=== PATIENT | male | born 1970 | race Two or more races ===

== ENCOUNTER 2018-01-25 14:08 | Emergency (ER) | payer OTHER ==
[~2018-01-25] VITALS: Ht 167.6 cm; Wt 85.3 kg
[2018-01-25 14:14] VITALS: BP 125/88
[2018-01-25] MEDS ORDERED: methylPREDNISolone SOD SUCC 125 MG/2 ML VL IM ONE (15:00)
[2018-01-25] MEDS ORDERED: ALBUTEROL SULF 2.5 MG/0.5ML(0.5%) NEB SOLN NEB ONE (15:00)
[2018-01-25] MEDS ORDERED: IPRATROPIUM BROM 0.5 MG/2.5ML INH SOL NEB ONE (15:00)
== END 2018-01-25 15:57 | disposition home or self-care (01) ==
LOC: ER 14:08
DX: J40 Bronchitis, not specified as acute or chronic (principal); J98.01 Acute bronchospasm; J70.5 Respiratory conditions due to smoke inhalation
CPT/HCPCS: 71046; 94640; 96372; 99284; J2930; J7611; J7644

== ENCOUNTER 2018-07-01 08:01 | Inpatient (IN) | payer BC, OTHER ==
[2018-07-01] VITALS (7 sets, daily range): BP systolic 128–139; BP diastolic 68–78
[~2018-07-01] VITALS: Ht 167.6 cm; Wt 86.9 kg
[2018-07-01 08:26] LABS: Basophils # (auto) 0 uL; Basophils % (auto) 0.4 % (0.0-2.0); Eosinophils # (auto) 0 uL; Eosinophils % (auto) 0.1 % (0.0-7.0); Hematocrit 44.3 % (41.0-53.0); Lymphocytes # (auto) 1.2 uL; Lymphocytes % (auto) 14.6 % (10.0-50.0); Mean Corpuscular Hemoglobin 29.1 pg (28.0-32.0); Mean Corpuscular Hgb Conc. 33.9 g/dL (32.0-36.0); Mean Corpuscular Volume 85.9 fL (80.0-100.0); Monocytes # (auto) 0.9 uL; Monocytes % (auto) 11.3 % (0.0-12.0); Neutrophils # (auto) 6.1 uL; Neutrophils % (auto) 73.6 % (37.0-80.0); Nucleated Red Blood Cells % 0.1 %; Platelet Count (auto) 194 10^3/uL (140-450); Red Blood Cells 5.16 10^6/uL (4.5-5.90); White Blood Cell 8.3 10^3/uL (4.4-10.8)
[2018-07-01 08:41] LABS: Albumin 3.8 g/dL (3.4-5.0); Calcium 9.2 mg/dL (8.5-10.1); Potassium 3.9 mmol/L (3.5-5.1)
[2018-07-01 08:45] LABS: Bilirubin, Total 1.1 mg/dL (0.2-1.0); Total Protein 8.4 g/dL (6.4-8.2)
[2018-07-01] MEDS ORDERED: ONDANSETRON HCL 4 MG/2 ML VIAL IV ONE ×2 (10:45→11:15)
[2018-07-01] MEDS ORDERED: KETOROLAC TROMETH 30 MG/ML 1ML VIAL IV ONE (10:45)
[2018-07-01 10:51] LABS: Urine Bacteria NONE SEEN /hpf (None Seen); Urine Blood Negative /uL (Negative); Urine Mucus FEW (None Seen); Urine Specific Gravity 1.021 (1.001-1.035); Urine Sperm PRESENT /hpf (None Seen); Urine WBC 1 /hpf (0 - 3)
[2018-07-01] MEDS ORDERED: HYDROmorphone HCL 2 MG/ML VL IV ONE (11:15)
[2018-07-01] MEDS ORDERED: ENOXAPARIN SOD 100 MG/1 ML SYRINGE SC ONE (12:30)
[2018-07-01] MEDS ORDERED: PIPERACILLIN-TAZOB 3.375GM 100 ML IV ONE (12:30)
[2018-07-01 12:55] LABS: Amylase 68 U/L (25-115); Lipase 295 U/L (73-393)
[2018-07-01] MEDS ORDERED: IOHEXOL 300 MG/ML 100ML BOTTLE IJ ONE (13:04)
[2018-07-01] MEDS: SODIUM CHLORIDE 0.9% 1,000 ML IV SCH (13:20)
[2018-07-01] MEDS ORDERED: NITROGLYCERIN 0.4 MG SL TAB SL PRN (13:45)
[2018-07-01 14:46] LABS: Partial Thromboplastin Time 29.7 sec (23.78-33.04); Prothrombin Time 10.7 sec (9.27-12.13)
[2018-07-01] MEDS ORDERED: IOHEXOL 350 MG/ML 100ML IJ ONE ×3 (15:02→18:29)
[2018-07-01] MEDS ORDERED: LIDOCAINE 2%HCL (LOCAL ANESTH.) INJ 20ML MDV ONE ×2 (15:02→18:29)
[2018-07-01] MEDS ORDERED: fentaNYL CITRATE 100 MCG/2 ML VL ONE ×3 (15:17→18:30)
[2018-07-01] MEDS ORDERED: MIDAZOLAM HCL 1MG/1ML-2 ML VIAL ONE ×3 (15:17→18:31)
[2018-07-01] MEDS ORDERED: STERILE WATER IV ONE (16:30)
[2018-07-01] MEDS ORDERED: ALTEPLASE IV ONE ×2 (16:30→17:00)
[2018-07-01] MEDS ORDERED: CATHFLO IV ONE (17:00)
[2018-07-01] MEDS ORDERED: SODIUM CHLORIDE 0.9% IV ONE (17:00)
[2018-07-01] MEDS: HYDROmorphone HCL 2 MG/ML VL IV PRN ×3 (17:18→22:51)
[2018-07-01] MEDS ORDERED: CATHFLO ACTIVASE (ALTEPLASE) 2 MG VIAL IV ONE ×3 (19:14→19:15)
--- NOTE | 2018-07-01 19:35 | NUR ---
Pt being admitted to ICU ZEESHAN HURST admitted to ICU via gurney on surveillance system monitor. Patient transfered to bed, connected to ICU monitoring and oxygen, and weighed by bedscale. Patient oriented to Lena Thomas RN primary RN, unit, room, bed, and unit policies regarding patient care and visiting hours. All questions and concerns addressed, patient verbalized understanding. NOTE: PT TO UNIT WITH ARTERIAL SHEATH TO R. FLANK WITH TPA INFUSING AT SET RATE OF 1 MG/HR. NO INDICATION OF BLEEDING OBSERVED. LION TO GRAVITY DRAINING DARK VERNON URINE. NS INFUSING AT 50 ML/HR AND TPA AT 100ML/HR. BED IN LOWEST LOCKED POSITION. SIDE RAILS UP X 2. PT A&O X 4 EDUCATED TO ALERT RN IF NOSE BLEED OR ANY UNUSUAL BLEEDING OBSERVED. PT EDUCATED TO REMAIN IN BED AND USE CALL JOHNSON FOR ASSIST IF NEEDED. PT VERBALIZES UNDERSTANDING.
--- NOTE | 2018-07-01 19:40 | NUR ---
VITAL SIGN MONITOR PT TO ICU. MONITOR WITH OUT ECG CORDS. PT IN NO DISTRESS. BP WNL. WILL HOOK TO MONITOR SOON CABLE LOCATED. MAY SEE INTERRUPTION ON VITAL SIGN RECORD.
[2018-07-01] MEDS: ALTEPLASE 2MG CATHFLO 10 MG in SODIUM CHLORIDE 0.9% 1,000 ML IV SCH (19:45)
--- NOTE | 2018-07-01 20:00 | NUR ---
PAIN PT C/O 6/10 PAIN TO R. FLANK SITE OF SHEATH PLACEMENT. PT TENDER TO TOUCH. MEDICATED WITH DILAUDID SIVP PER ORDER (SEE EMAR).
--- NOTE | 2018-07-01 20:15 | NUR ---
TPA PT TPA CONTINUING TO HIGH PRESSURE. NO VISIBLE KINK IN IV TUBING. HOWEVER KINK NOTED NEAR INSERTION SITE OF SHEATH. USING STERILE TECHNIQUE DRESSING REMOVED. AREA CLEANSED WITH CHLORAPREP, CATHETER UN-KINKED AND REDRESSED. TPA NOW INFUSING. PT TOLERATED WELL.
--- NOTE | 2018-07-01 22:50 | NUR ---
PAIN PT C/O PAIN TO R. FLANK AND ABDOMEN 5/10. PT ABDOMEN SOFT TENDER TO TOUCH WITH HYPERACTIVE BOWEL SOUNDS. WILL CONTINUE TO CLOSELY MONITOR FOR DISTENSION. MEDICATED PT WITH DILAUDID SIVP PER ORDER (SEE EMAR).
[2018-07-02] VITALS (53 sets, daily range): BP systolic 125–156; BP diastolic 66–90
[2018-07-02] MEDS: HYDROmorphone HCL 2 MG/ML VL IV PRN ×7 (02:00→23:11)
--- NOTE | 2018-07-02 02:00 | NUR ---
PAIN PT C/O ABDOMINAL PAIN 10/06. MEDICATED WITH DILAUDID SIVP PER ORDER.
--- NOTE | 2018-07-02 03:30 | NUR ---
PAIN PT HAVING ABDOMINAL PAIN 12/06. DILAUDID NOT DUE. WIREWORKER PAGED FOR ORDERS AWAIT C/B.
[2018-07-02 03:45] LABS: Basophils # (auto) 0 uL; Basophils % (auto) 0.5 % (0.0-2.0); Eosinophils # (auto) 0 uL; Eosinophils % (auto) 0.2 % (0.0-7.0); Hematocrit 40.4 % (41.0-53.0); Hemoglobin 13.6 g/dL (13.5-17.5); Lymphocytes % (auto) 14.2 % (10.0-50.0); Mean Corpuscular Hgb Conc. 33.7 g/dL (32.0-36.0); Mean Corpuscular Volume 86.2 fL (80.0-100.0); Monocytes % (auto) 14.3 % (0.0-12.0); Neutrophils % (auto) 70.8 % (37.0-80.0); Nucleated Red Blood Cells % 0.1 %; Platelet Count (auto) 170 10^3/uL (140-450); Red Blood Cells 4.69 10^6/uL (4.5-5.90); Red Cell Distribution Width 14.1 % (11.8-14.3); White Blood Cell 7.1 10^3/uL (4.4-10.8)
[2018-07-02] MEDS: SODIUM CHLORIDE 0.9% 1,000 ML IV SCH ×3 (03:45→20:30)
[2018-07-02] MEDS: MORPHINE SULFATE 4 MG/ML SYR/VIAL IV PRN ×2 (03:54→20:36)
[2018-07-02 04:00] LABS: INR 0.97 (0.9-1.15); Partial Thromboplastin Time 26.6 sec (23.78-33.04); Prothrombin Time 10.4 sec (9.27-12.13)
--- NOTE | 2018-07-02 04:06 | NUR ---
MARITO MELVIN CALL BACK MARITO MELVIN CALLED UNIT. UPDATED REGARDING PT ABDOMINAL PAIN. ORDERS RECEIVED.
[2018-07-02] MEDS ORDERED: HYDROmorphone HCL 2 MG/ML VL IV ONE ×3 (04:15→19:15)
[2018-07-02] MEDS ORDERED: STERILE WATER 20 ML ONE (05:16)
[2018-07-02] MEDS: ALTEPLASE 2MG CATHFLO 10 MG in SODIUM CHLORIDE 0.9% 1,000 ML IV SCH ×2 (05:45→20:00)
[2018-07-02] MEDS ORDERED: PANT40TA2 PO (05:59)
[2018-07-02 06:28] LABS: BUN/Creatinine Ratio 14.3; Calcium 7.7 mg/dL (8.5-10.1)
[2018-07-02 06:31] LABS: Bilirubin, Total 0.8 mg/dL (0.2-1.0); Total Protein 6.9 g/dL (6.4-8.2)
--- NOTE | 2018-07-02 07:40 | NUR ---
OPENING SHIFT NOTE Assumed care of patient. Patient awake, alert and oriented x4, no distress noted, respirations even and unlabored - patient currently on 2 liters oxygen via nasal cannula. Patient reporting pain 8/10 and will be medicated as ordered by physician. Patient instructed on POC and to maintain NPO for now until further notice. Call light within reach, fall precautions in place. Will continue to monitor for changes during shift.
--- NOTE | 2018-07-02 08:35 | NUR ---
FAMILY AT BEDSIDE
--- NOTE | 2018-07-02 09:05 | NUR ---
CONTACT TRANSPORTER DRIVER TO INQUIRE IF PATIENT WILL BE HAVING PROCEDURE TODAY AND WHEN. PRERNA, TRANSPORTER DRIVER RN AGREED WITH KEEPING HIM NPO UNTIL FURTHER NOTICE. SHE STATED SHE WOULD CONTACT DR MARTINEZ AND REPORT BACK TO THIS NURSE. PATIENT AND SPOUSE AWARE.
--- NOTE | 2018-07-02 09:14 | NUR ---
ORDERS FOR CONSENT RECEIVED PORTAL VENOUS THROMBECTOMY - ESTIMATED TIME OF PROCEDURE NOT AVAILABLE.
--- NOTE | 2018-07-02 09:43 | NUR ---
DR MARTINEZ AT BEDSIDE DR MARTINEZ UPDATED ON PATIENT'S STATUS, DR MARTINEZ ASSESSED TPA INSERTION SITE RIGHT FLANK. PATIENT ADDRESSED PAIN MEDICATION WITH PATIENT, NO ORDERS TO CHANGE PAIN MEDICATION RECEIVED AT THIS TIME. DR MARTINEZ DID REQUEST HEPARIN DRIP TO BE STARTED ALONG WITH TPA. AWAITING HOSPITALIST ASSIGNMENT TO NOTIFY.
--- NOTE | 2018-07-02 10:40 | NUR ---
CONTACT HOSPITALIST SPOKE WITH DR GARCIA, MADE AWARE OF DR MARTINEZ'S REQUEST TO START HEPARIN LAKSHMI ALONG WITH TPA.
--- NOTE | 2018-07-02 12:35 | NUR ---
HOSPITALIST AT BEDSIDE DR GARCIA UPDATED ON PATIENT'S STATUS, DR MARTINEZ'S REQUEST TO PLACE ON HEPARIN DRIP AND PATIENT PAIN LEVEL. REGARDING HEPARIN DRIP, DR GARCIA SAID "NO BOLUS". ORDERS WILL BE CARRIED OUT.
[2018-07-02 13:29] LABS: INR 0.97 (0.9-1.15); Partial Thromboplastin Time 27.3 sec (23.78-33.04); Prothrombin Time 10.4 sec (9.27-12.13)
[2018-07-02] MEDS ORDERED: IOHEXOL 350 MG/ML 100ML IJ ONE (14:21)
[2018-07-02] MEDS ORDERED: LIDOCAINE 2%HCL (LOCAL ANESTH.) INJ 20ML MDV ONE (14:21)
--- NOTE | 2018-07-02 14:30 | NUR ---
to cathlab for IR procedure pt on tPA drip to op-site catheter. huston catheter in place, draining to gravity. pt a&o x4.
--- NOTE | 2018-07-02 14:32 | NUR ---
PATIENT OFF FLOOR TO DRAMATIC AGENT VIA GURNEY - CONNECTED TO BEDSIDE MONITOR. PATIENT ALERT AND ORIENTED X4, NO DISTRESS NOTED, RESPIRATIONS EVEN AND UNLABORED. WILL MONITOR UPON RETURN TO FLOOR. DRAMATIC AGENT STAFF AWARE THAT HEPARIN HAS NOT BEEN STARTED, AWAITING TO RECEIVE FROM PHARMACY.
[2018-07-02] MEDS ORDERED: fentaNYL CITRATE 100 MCG/2 ML VL ONE ×2 (15:05→16:33)
[2018-07-02] MEDS ORDERED: MIDAZOLAM HCL 1MG/1ML-2 ML VIAL ONE (15:05)
[2018-07-02] MEDS ORDERED: HEPARIN SODIUM (PORCINE) 5000 UNITS/ML 1ML VIAL ONE (15:28)
[2018-07-02] MEDS ORDERED: CATHFLO ACTIVASE (ALTEPLASE) 2 MG VIAL IV ONE ×3 (15:51→18:45)
--- NOTE | 2018-07-02 16:50 | NUR ---
phone endorsed pt to primary RN
--- NOTE | 2018-07-02 17:05 | NUR ---
pt transferred directly to ICU pt a&ox4, endorsed to primary RN at bedside. tPA drip to op-site catheter resumed. huston catheter remains in place.
[2018-07-02] MEDS: HEPARIN DRIP/D5W 100UNITS/ML 250 ML IV SCH ×2 (17:15→23:00)
--- NOTE | 2018-07-02 17:30 | NUR ---
PATIENT RETURN TO FLOOR 1710: PATIENT RETURN TO FLOOR FROM BUSINESS DATABASE ANALYST, CONNECTED TO BEDSIDE MONITOR, VSS STABLE AND DOCUMENTED. 1715: NEW TPN BAG RESTARTED 1730: HEPARIN STARTED - VERIFIED RATE WITH PHARMACISTS, WILL RECHECK COAGULATION AT 2300. 1738: PATIENT MEDICATED FOR PAIN ORDERED BY PHYSICIAN. IV access obtained, via clean sterile technique by inserting 20 gauge catheter at left forearm after two attempt(s). IV secured properly. No trauma to site. Patient tolerated procedure well. FALL PRECAUTIONS IN PLACE, CALL LIGHT WITHIN REACH. SPOUSE AT BEDSIDE.
[2018-07-02] MEDS ORDERED: HYDROmorphone HCL 2 MG/ML VL IV PRN (18:45)
--- NOTE | 2018-07-02 18:50 | NUR ---
CONTACT HOSPITALIST HOSPITALIST UPDATED ON PATIENT'S STATUS AND INCREASE PAIN, ORDERS RECEIVED AND CARRIED OUT.
[2018-07-02] MEDS ORDERED: HYDROmorphone HCL 2 MG/ML VL ONE (18:56)
--- NOTE | 2018-07-02 19:01 | NUR ---
ATTEMPT TO PAGE DR MARTINEZ UNSUCCESSFUL TRANSFERRED TO [facility] AND NOTIFIED THIS NURSE THAT THEY WERE NOT ABLE TO PAGE DR MARTINEZ AT THIS TIME. PAGED HOSPITALIST ONCE AGAIN TO NOTIFY OF PATIENT'S CONTINUED INCREASE PAIN, AWAITING RESPONSE.
--- NOTE | 2018-07-02 19:06 | NUR ---
PAIN CONTROL/END OF SHIFT PATIENT'S SPOUSE NOTIFIED THIS NURSE THAT PATIENT "IS MORE COMFORTABLE". WILL ENDORSE CONTINUED CARE TO PICKING BELT OPERATOR RN. Addendum: 07/02/18 at 1913 by Diana Beltran RN RETURN CALL FROM HOSPITALIST AND AWARE OF PAIN CONTROL. NO FURTHER ORDERS AT THIS TIME.
[2018-07-02] MEDS ORDERED: ONDANSETRON HCL 4 MG/2 ML VIAL ONE (20:19)
--- NOTE | 2018-07-02 20:20 | NUR ---
HOSPITALIST PAGE PATIENT COMPLAINING OF PAIN LVL 02/05 PATIENT ALSO HAVING ANXIETY AT THIS TIME REQUESTING ORDER FOR ATIVAN
[2018-07-02] MEDS ORDERED: ONDANSETRON HCL 4 MG/2 ML VIAL IV ONE (20:30)
--- NOTE | 2018-07-02 20:36 | NUR ---
PATIENT STATUS PATIENT STATES PAIN LVL IS 10/10 MORPHINE GIVEN
--- NOTE | 2018-07-02 21:00 | NUR ---
HOSPITALIST PAGED WAITING FOR CALL BACK REGARDING ORDERS FOR ATIVAN
[2018-07-02] MEDS ORDERED: LORazepam 0.5 MG TAB PO PRN (21:30)
--- NOTE | 2018-07-02 21:30 | NUR ---
ORDERS GIVEN PER HOSPITALIST GIVE .5 ATIVAN PO Q12
[2018-07-02] MEDS ORDERED: LORazepam 0.5 MG TAB ONE (21:34)
[2018-07-02 23:26] LABS: INR 1.04 (0.9-1.15); Partial Thromboplastin Time 49.3 sec (23.78-33.04); Prothrombin Time 11.1 sec (9.27-12.13)
[2018-07-03] VITALS (58 sets, daily range): BP systolic 98–184; BP diastolic 46–111
[2018-07-03] MEDS: SODIUM CHLORIDE 0.9% 1,000 ML IV SCH ×4 (03:30→23:28)
[2018-07-03] MEDS: HYDROmorphone HCL 2 MG/ML VL IV PRN ×6 (03:36→21:40)
[2018-07-03 04:09] LABS: Basophils # (auto) 0 uL; Basophils % (auto) 0.2 % (0.0-2.0); Eosinophils # (auto) 0 uL; Hematocrit 28.5 % (41.0-53.0); Hemoglobin 9.5 g/dL (13.5-17.5); Lymphocytes # (auto) 0.9 uL; Mean Corpuscular Hgb Conc. 33.4 g/dL (32.0-36.0); Mean Corpuscular Volume 86.7 fL (80.0-100.0); Monocytes # (auto) 1.1 uL; Monocytes % (auto) 11.4 % (0.0-12.0); Neutrophils % (auto) 79.4 % (37.0-80.0); Platelet Count (auto) 203 10^3/uL (140-450); Red Blood Cells 3.29 10^6/uL (4.5-5.90); White Blood Cell 10.1 10^3/uL (4.4-10.8)
[2018-07-03 04:34] LABS: Albumin 2.2 g/dL (3.4-5.0); Calcium 7.3 mg/dL (8.5-10.1); Potassium 4.6 mmol/L (3.5-5.1)
[2018-07-03 04:39] LABS: Bilirubin, Total 0.7 mg/dL (0.2-1.0); Total Protein 5.7 g/dL (6.4-8.2)
[2018-07-03 04:58] LABS: BUN/Creatinine Ratio 15.1
[2018-07-03 05:14] LABS: INR 1.05 (0.9-1.15); Prothrombin Time 11.2 sec (9.27-12.13)
[2018-07-03 05:38] LABS: Partial Thromboplastin Time 105.5 sec (23.78-33.04)
[2018-07-03] MEDS: ALTEPLASE 2MG CATHFLO 10 MG in SODIUM CHLORIDE 0.9% 1,000 ML IV SCH ×2 (06:00→16:00)
--- NOTE | 2018-07-03 07:55 | NUR ---
ASSESS- PT. LYING IN BED AWAKE, ALERT AND ORIENTED TIMES FOUR. HAVING ABD. PAIN 6 ON A SCALE OF 0-10, JUST MED. PT. LUNGS CLEAR DELFINO. INSPIRATORY AND EXPIRATORY. ON R/A. NO SOB. PT. IS SLIGHTLY ANXIOUS. ABD. SOFT, DISTENDED, TENDER. BOWEL SOUNDS ALL FOUR QUADRANTS. NO N/V. PT. IS NPO. F/C TO GRAVITY WITH DK. VERNON URINE WITH SM. CLOTS NOTED. RT. FLANK WITH SHEATH. TPA OFF PER ORDER. HEPARIN GTT. AT 1550 UNITS/HR. SKIN INTACT. PT. ABLE TO MOVE ALL EXTREMITIES AND MOVE SELF IN BED. RADIAL PULSES STRONG, PALPABLE DELFINO. PEDAL PULSES STRONG, PALPABLE DELFINO.
--- NOTE | 2018-07-03 07:55 | NUR ---
PT. HAVING ABD. PAIN 6 ON A SCALE OF 0-10. FACIAL GRIMACING, RUBBING ABD. MED. WITH DILAUDID 1MG. IVP.
[2018-07-03] MEDS: HEPARIN DRIP/D5W 100UNITS/ML 250 ML IV SCH (08:04)
--- NOTE | 2018-07-03 08:25 | NUR ---
PAIN HAS DECREASED TO A 2. PT. SAYS HE IS MORE COMFORTABLE NOW.
--- NOTE | 2018-07-03 09:15 | NUR ---
DR. HARDEN Provider/Hospitalist at bedside. GAVE UPDATE ON PT. NEW ORDERS RECEIVED.
--- NOTE | 2018-07-03 10:00 | NUR ---
FAMILY VISITING AT THE .
--- NOTE | 2018-07-03 10:00 | NUR ---
DR. MARTINEZ Provider/Hospitalist at bedside. NEW ORDERS RECEIVED. ORDERED TO HAVE TPA RESTARTED RIGHT NOW. WILL HAVE PORTAL VENOUS THROMBECTOMY THIS AFTERNOON IN RADIOLOGY PER DR. MARTINEZ. WILL OBTAIN CONSENT FROM PT.
--- NOTE | 2018-07-03 11:15 | NUR ---
PT. REPORTING ABD. PAIN 5 ON A SCALE OF 0-10. MED. WITH DILAUDID 1MG. IVP.
--- NOTE | 2018-07-03 11:45 | NUR ---
PT.'S PAIN HAS DECREASED TO A 2. PT. MORE COMFORTABLE NOW.
[2018-07-03] MEDS ORDERED: PPN PER PHARMACY 0 ML IV SCH (13:00)
--- NOTE | 2018-07-03 13:00 | NUR ---
DR. GARCIA Provider/Hospitalist at bedside PREVIOUSLY. NEW ORDERS RECEIVED.
[2018-07-03 13:36] LABS: Partial Thromboplastin Time 60.8 sec (23.78-33.04); Prothrombin Time 10.7 sec (9.27-12.13)
[2018-07-03] MEDS ORDERED: LIDOCAINE 2%HCL (LOCAL ANESTH.) INJ 20ML MDV ONE (14:05)
[2018-07-03] MEDS ORDERED: IOHEXOL 350 MG/ML 100ML IJ ONE (14:05)
--- NOTE | 2018-07-03 14:10 | NUR ---
PTT-60.80. NO CHANGE ON HEPARIN GTT. CONTINUES AT 1550 UNITS/HR.
--- NOTE | 2018-07-03 14:15 | NUR ---
THELMA MALDONADO CALLED FROM TUNNEL ELASTIC OPERATOR [employer] TO GET PT. READY FOR PROCEDURE BY DR. MARTINEZ. ATTACHED TO WALL MIRROR DEPARTMENT SUPERVISOR, ON R/A. PT. SIGNED CONSENTS. AT THE BS. THELMA DE LA CRUZ CALLED AND SAID TO TURN OFF THE HEPARIN GTT. PER DR. MARTINEZ. VSS.
[2018-07-03 14:29] LABS: Magnesium 2.2 mg/dL (1.6-2.6); Phosphorus 2.2 mg/dL (2.5-4.90)
[2018-07-03] MEDS ORDERED: MIDAZOLAM HCL 1MG/1ML-2 ML VIAL ONE (14:30)
[2018-07-03] MEDS ORDERED: fentaNYL CITRATE 100 MCG/2 ML VL ONE ×2 (14:30→16:22)
[2018-07-03 14:32] LABS: Pre Albumin 7.6 mg/dL (20.0-40.0)
[2018-07-03] MEDS ORDERED: GELATIN 1 SPONGE SIZE 100 TOP ONE (15:00)
[2018-07-03] MEDS ORDERED: CATHFLO ACTIVASE (ALTEPLASE) 2 MG VIAL IV ONE (15:31)
[2018-07-03] MEDS ORDERED: HEPARIN 1,000 UNITS/ml 1ML VIAL ONE (15:50)
[2018-07-03] MEDS ORDERED: SODIUM PHOSPHATES 30 MEQ in D5W 5% 250 ML IV ONE (16:00)
[2018-07-03] MEDS ORDERED: GELATIN 1 SPONGE SIZE 50 TOP ONE (16:05)
--- NOTE | 2018-07-03 16:35 | NUR ---
PT. RETURNED FROM SUPERVISOR OFFSET PLATE PREPARATION VIA BED, ATTACHED TO DUCO POLISHER, R/A. REPORT RECEIVED. DSG. TO RT. LATERAL CHEST D/I, SHEATH D'C'D BY DR. MARTINEZ IN SUPERVISOR OFFSET PLATE PREPARATION. TPA D'C'D IN SUPERVISOR OFFSET PLATE PREPARATION PER DR. MARTINEZ. PT. DROWSY, AROUSABLE. ALERT AND ORIENTED TIMES FOUR. NO DISCOMFORT AT THIS TIME. HEPARIN GTT. OFF FOR [address] MARTINEZ AND RESTART IF NO SIGNS OF BLEEDING FROM DSG. TO RT. CHEST. LUNGS CLEAR DELFINO. INSPIRATORY AND EXPIRATORY.
--- NOTE | 2018-07-03 17:45 | NUR ---
PT. HAVING ABD. PAIN 4 ON A SCALE OF 0-10. MED. WITH DILAUDID 1MG. IVP.
[2018-07-03] MEDS: ACCU-CHEK COMFORT CURVE STRIP VI SCH (17:57)
[2018-07-03] MEDS: InsuLIN REG 1unit/0.01ml Soln (100units/ml) SC SCH (17:58)
[2018-07-03] MEDS ORDERED: DEXTROSE (50%) 50ML SYRG IV SCH (18:00)
--- NOTE | 2018-07-03 18:15 | NUR ---
PT. NO LONGER HAVING ANY PAIN. RESTING WITH EYES CLOSED.
--- NOTE | 2018-07-03 18:30 | NUR ---
NO BLEEDING TO DSG. RT. LATERAL CHEST. RESTARTED HEPARIN GTT. AT 1550 UNITS/HR. PER DR. MARTINEZ.
[2018-07-03 19:32] LABS: INR 1.01 (0.9-1.15); Partial Thromboplastin Time 28.3 sec (23.78-33.04); Prothrombin Time 10.8 sec (9.27-12.13)
[2018-07-03] MEDS: AMINO ACID INFUSION IN D10W 1,000 ML IV NR (20:00)
[2018-07-03] MEDS ORDERED: LORazepam 2MG/ML-1ML VIAL IV PRN (21:00)
[2018-07-03] MEDS ORDERED: ONDANSETRON HCL 4 MG/2 ML VIAL ONE (21:01)
[2018-07-04] VITALS (29 sets, daily range): BP systolic 101–151; BP diastolic 56–85
[2018-07-04 01:26] LABS: INR 1.05 (0.9-1.15); Partial Thromboplastin Time 69.2 sec (23.78-33.04); Prothrombin Time 11.2 sec (9.27-12.13)
[2018-07-04] MEDS: ONDANSETRON HCL 4 MG/2 ML VIAL IV PRN ×2 (01:45→07:49)
[2018-07-04] MEDS: HYDROmorphone HCL 2 MG/ML VL IV PRN ×4 (01:45→19:37)
[2018-07-04 04:36] LABS: Basophils # (auto) 0 uL; Eosinophils # (auto) 0 uL; Lymphocytes # (auto) 1.4 uL; Monocytes # (auto) 1.6 uL; Red Blood Cells 1.85 10^6/uL (4.5-5.90)
[2018-07-04 04:38] LABS: Basophils % (auto) 0.2 % (0.0-2.0); Hematocrit 15.8 % (41.0-53.0); Lymphocytes % (auto) 9.6 % (10.0-50.0); Mean Corpuscular Hemoglobin 29.2 pg (28.0-32.0); Mean Corpuscular Hgb Conc. 34.1 g/dL (32.0-36.0); Mean Corpuscular Volume 85.4 fL (80.0-100.0); Monocytes % (auto) 11.4 % (0.0-12.0); Neutrophils % (auto) 78.8 % (37.0-80.0); Platelet Count (auto) 212 10^3/uL (140-450); Red Cell Distribution Width 13.6 % (11.8-14.3)
[2018-07-04 04:40] LABS: Albumin 2.2 g/dL (3.4-5.0); BUN/Creatinine Ratio 19.1; Magnesium 2.3 mg/dL (1.6-2.6); Potassium 4.4 mmol/L (3.5-5.1)
[2018-07-04 04:42] LABS: Bilirubin, Total 0.4 mg/dL (0.2-1.0); Total Protein 5.6 g/dL (6.4-8.2)
[2018-07-04 04:46] LABS: Hemoglobin 5.4 g/dL (13.5-17.5)
--- NOTE | 2018-07-04 04:55 | NUR ---
CRITICAL LAB - HGB 5.4 PER APPLICATION SECURITY ENGINEER. RESULT ENDORSED TO RODNEY RENEE
[2018-07-04] MEDS: InsuLIN REG 1unit/0.01ml Soln (100units/ml) SC SCH ×4 (06:24→18:00)
[2018-07-04] MEDS: ACCU-CHEK COMFORT CURVE STRIP VI SCH ×4 (06:24→18:18)
--- NOTE | 2018-07-04 07:45 | NUR ---
PAIN PATIENT ALERT AND ORIENTED X4. PATIENT COMPLAINING OF ABDOMINAL PAIN AND HICCUPS, WILL MEDICATE PER MAR.
--- NOTE | 2018-07-04 07:50 | NUR ---
BLOOD CONSENT COMPLETED PATIENT SIGNED BLOOD CONSENT AND PLACED IN CHART. AWAITING STAT TYPE AND SCREEN RESULTS TO INFUSE PRBCS ORDERED
--- NOTE | 2018-07-04 08:27 | NUR ---
PATIENTS AT BEDSIDE UPDATED ON STATUS THROUGHOUT THE NIGHT AND PLAN OF CARE
--- NOTE | 2018-07-04 08:38 | NUR ---
SPOKE WITH DR MARTINEZ, NEW ORDERS RECEIVED
[2018-07-04 08:49] LABS: INR 1.02 (0.9-1.15); Partial Thromboplastin Time 44.5 sec (23.78-33.04); Prothrombin Time 10.9 sec (9.27-12.13)
--- NOTE | 2018-07-04 08:55 | NUR ---
SPOKE WITH DR BERMUDEZ, INFORMED HIM OF STATUS STATES WILL BE IN THIS AM. NO NEW ORDERS AT THIS TIME
[2018-07-04] MEDS: SODIUM CHLORIDE 0.9% 1,000 ML IV SCH ×3 (09:00→20:56)
--- NOTE | 2018-07-04 09:03 | NUR ---
STRATEGIC MARKETING ASSOCIATE AT BEDSIDE
--- NOTE | 2018-07-04 09:55 | NUR ---
1ST UNIT OF PRBCS STARTED
[2018-07-04] MEDS: HEPARIN DRIP/D5W 100UNITS/ML 250 ML IV SCH (10:30)
[2018-07-04] MEDS ORDERED: METOCLOPRAMIDE HCL 5MG/ml INJ 2ml VIAL IV ONE (12:30)
[2018-07-04] MEDS ORDERED: PANTOPRAZOLE 40 MG/10 ML VIAL IV ONE (12:45)
--- NOTE | 2018-07-04 13:24 | NUR ---
ASSIGNED RN AT LUNCH AND EPIC AMBULATORY ANALYST ENDORSED THIS RN TO START SECOND UNIT OF PRBCS. MISTAKE MADE ON TRANSFUSION END TIME. START TIME WAS 1317 AND STARTED AT 75ML/HR WITH VS STABLE PRIOR TO START. ACCIDENTALLY CHARTED END TIME AT 1318, BUT BLOOD IS STILL TRANSFUSING. ASSIGNED RN PADMA BACK FROM LUNCH AND AWARE.
--- NOTE | 2018-07-04 14:19 | NUR ---
NUTRITION CONSULT/ASSESSMENT NOTES Please refer to link notes of nutrition screen form filed under the intervention section of the plan of care for further details. Est. Needs: 1650 kcal to 2100 kcal (18-23 kcal/kgBW), 91 gms to 118 gms pro (1.0-1.3 gms/kgBW d/t severe hypoalbuminemia). Will continue to monitor pertinent labs and reassess nutrient need prn Thank you for this consult. Addendum: 07/04/18 at [address] Amended: Links added.
[2018-07-04] MEDS ORDERED: LIDOCAINE VISCOUS 2% 15ML UD ONE (14:33)
[2018-07-04] MEDS ORDERED: SODIUM CHLORIDE LOCK 10 ML ONE (14:33)
[2018-07-04] MEDS ORDERED: diphenhdrAMINE HCL 50 MG/1 ML VL ONE (14:34)
--- NOTE | 2018-07-04 14:43 | NUR ---
GI TEAM SETTING UP AT BEDSIDE
[2018-07-04] MEDS: MIDAZOLAM HCL 5 MG/ML-1ML VIAL ONE ×2 (15:05→15:08)
[2018-07-04] MEDS: fentaNYL CITRATE 100 MCG/2 ML VL ONE ×2 (15:05→15:08)
--- NOTE | 2018-07-04 16:21 | NUR ---
PICC RN AT BEDSIDE
[2018-07-04] MEDS ORDERED: LIDOCAINE 1% (LOCAL ANESTH.) PF 5ml SDV ID ONE (16:45)
--- NOTE | 2018-07-04 16:45 | NUR ---
PICC Line Placement Patient educated on need for PICC line placement. All risks and benefits explained and all questions and concerns addressed prior to procedure. Noted past medical history and allergies with no contraindications. INR and Plt counts within acceptable range. fr PICC line inserted via right basilic vein using [employer] US and Tip Location System. Sterile technique with maximum barrier precautions utilized. Blood return obtained from each of the three lumens and each flushed easily with NS using proper technique. PICC secured with Stat-lock; biodisc and occlusive dressing applied. Stat portable chest x-ray obtained for PICC tip placement. *Baseline Arm Circumference 33 cm. *Internal Length 45 cm. *External Length 0 cm. *PICC lot #[id number].
[2018-07-04 18:20] LABS: Hematocrit 20.7 % (41.0-53.0)
--- NOTE | 2018-07-04 18:38 | NUR ---
CRITICAL HGB- PAGED HOSPITALIST
[2018-07-04] MEDS: AMINO ACID INFUSION IN D10W 1,000 ML IV NR (19:49)
[2018-07-04] MEDS ORDERED: PPN PER PHARMACY IV NR ×10 (20:00)
[2018-07-04] MEDS: PANTOPRAZOLE 40 MG/10 ML VIAL IV SCH (22:29)
[2018-07-04] MEDS: SODIUM CHLOR 0.9% PF (SALINE LOCK) 10ML VIAL/SYR IV SCH (22:29)
[2018-07-04 22:32] LABS: Hematocrit 19.2 % (41.0-53.0)
[2018-07-04 22:35] LABS: Hemoglobin 6.5 g/dL (13.5-17.5)
[2018-07-05] VITALS (25 sets, daily range): BP systolic 112–151; BP diastolic 59–82
[2018-07-05] MEDS: HEPARIN DRIP/D5W 100UNITS/ML 250 ML IV SCH ×2 (01:40→16:50)
[2018-07-05 04:19] LABS: Albumin 2.2 g/dL (3.4-5.0); Calcium 7.2 mg/dL (8.5-10.1); Magnesium 2.5 mg/dL (1.6-2.6); Potassium 3.8 mmol/L (3.5-5.1)
[2018-07-05 04:22] LABS: BUN/Creatinine Ratio 26.3; Bilirubin, Total 0.5 mg/dL (0.2-1.0); Phosphorus 1.2 mg/dL (2.5-4.90); Total Protein 5.2 g/dL (6.4-8.2)
[2018-07-05] MEDS: SODIUM CHLORIDE 0.9% 1,000 ML IV SCH ×2 (04:45→13:02)
[2018-07-05 04:50] LABS: Hematocrit 22.4 % (41.0-53.0); Mean Corpuscular Hemoglobin 29.7 pg (28.0-32.0); Mean Corpuscular Hgb Conc. 34.5 g/dL (32.0-36.0); Platelet Count (auto) 109 10^3/uL (140-450); Red Blood Cells 2.61 10^6/uL (4.5-5.90)
[2018-07-05 05:38] LABS: Hemoglobin 7.7 g/dL (13.5-17.5)
[2018-07-05 05:39] LABS: Basophils % (manual) 0 (0.0-2.0); Blast Cells 0; Eosinophils % (manual) 0 (0-7); Metamyelocytes % 0; Myelocytes % 0; Promyelocytes % 0; Reactive Lymphocytes 0
[2018-07-05] MEDS: ACCU-CHEK COMFORT CURVE STRIP VI SCH ×4 (06:00→18:20)
[2018-07-05] MEDS: HYDROmorphone HCL 2 MG/ML VL IV PRN ×5 (06:00→21:08)
[2018-07-05] MEDS: InsuLIN REG 1unit/0.01ml Soln (100units/ml) SC SCH ×4 (06:00→18:00)
[2018-07-05 08:06] LABS: Band Neutrophils % (manual) 2; Lymphocytes % (manual) 22 (10.0-50.0); Monocytes % (manual) 4 (0-12)
--- NOTE | 2018-07-05 08:33 | NUR ---
PATIENTS AT BEDSIDE UPDATED ON STATUS THROUGHOUT THE NIGHT
--- NOTE | 2018-07-05 09:00 | NUR ---
BREAKFAST PATIENT TOLERATED 25% OF CLEAR LIQUID BREAKFAST. NO NAUSEA NOTED, JUST ABDOMINAL PAIN/SORENESS WHEN IN SITTING POSITION. WILL MEDICATE ORDERED
[2018-07-05] MEDS: PANTOPRAZOLE 40 MG/10 ML VIAL IV SCH ×2 (09:41→22:18)
[2018-07-05] MEDS: SODIUM CHLOR 0.9% PF (SALINE LOCK) 10ML VIAL/SYR IV SCH ×2 (09:46→22:18)
--- NOTE | 2018-07-05 10:03 | NUR ---
DR MONZON AT BEDSIDE DISCUSSED PLAN OF CARE WITH PATIENT AND PATIENTS . NEW ORDERS PLACED
--- NOTE | 2018-07-05 11:06 | NUR ---
DR BERMUDEZ AT BEDSIDE DISCUSSED PLAN OF CARE WITH PATIENT AND PATIENTS .
--- NOTE | 2018-07-05 11:42 | NUR ---
ASSISTED PATIENT TO BEDSIDE CHAIR. STANDBY ASSIST. PATIENT TOLERATED FAIR, STABLE VITALS. PATIENT DOES DESATURATE WHEN SHALLOW BREATHING DUE TO PAIN. EDUCATED PATIENT IMPORTANCE TAKING SLOW DEEP BREATHS. 2L NASAL CANNULA IN PLACE. PATIENTS AT BEDSIDE. EDUCATED PATIENT NOT TO GET UP OUT OF CHAIR BY HIMSELF, TO NOTIFY RN. PATIENT VERBALIZED UNDERSTANDING
--- NOTE | 2018-07-05 12:40 | NUR ---
AMBULATION PATIENT AMBULATED 1 LAP AROUND NURSES STATION WITH STAND BY ASSISTANCE. MODERATE DISCOMFORT ON RIGHT SIDE OF ABDOMEN. WILL MEDICATE ORDERED. PATIENT BACK TO BED, CONNECTED TO BEDSIDE CARDIAC MONITORS.
[2018-07-05] MEDS ORDERED: SODIUM PHOSPHATES 40 MEQ in D5W 5% 250 ML IV ONE (13:00)
[2018-07-05] MEDS ORDERED: PPN PER PHARMACY IV NR ×7 (20:00)
[2018-07-05] MEDS ORDERED: SODIUM CHLORIDE 0.9% 1,000 ML IV SCH (20:00)
[2018-07-05 20:41] LABS: Hemoglobin 7.3 g/dL (13.5-17.5)
[2018-07-05 20:45] LABS: Hematocrit 21.6 % (41.0-53.0); Mean Corpuscular Hemoglobin 29.1 pg (28.0-32.0); Mean Corpuscular Hgb Conc. 33.7 g/dL (32.0-36.0); Mean Corpuscular Volume 86.2 fL (80.0-100.0); Platelet Count (auto) 113 10^3/uL (140-450); White Blood Cell 11.2 10^3/uL (4.4-10.8)
[2018-07-05 21:01] LABS: Basophils % (manual) 0 (0.0-2.0); Blast Cells 0; Metamyelocytes % 0; Myelocytes % 0; Promyelocytes % 0; Reactive Lymphocytes 0
[2018-07-05 21:42] LABS: Band Neutrophils % (manual) 2; Eosinophils % (manual) 2 (0-7); Lymphocytes % (manual) 13 (10.0-50.0); Monocytes % (manual) 8 (0-12)
[2018-07-06] VITALS (29 sets, daily range): BP systolic 114–143; BP diastolic 57–78
[2018-07-06 04:28] LABS: Hemoglobin 7.6 g/dL (13.5-17.5); Platelet Count (auto) 122 10^3/uL (140-450)
[2018-07-06 04:30] LABS: Hematocrit 22.2 % (41.0-53.0); Mean Corpuscular Hemoglobin 29.6 pg (28.0-32.0); Red Blood Cells 2.56 10^6/uL (4.5-5.90); Red Cell Distribution Width 14.1 % (11.8-14.3)
[2018-07-06 04:34] LABS: Basophils % (manual) 0 (0.0-2.0); Blast Cells 0; Eosinophils % (manual) 0 (0-7); Metamyelocytes % 0; Myelocytes % 0; Promyelocytes % 0; Reactive Lymphocytes 0
[2018-07-06 04:43] LABS: INR 0.92 (0.9-1.15); Partial Thromboplastin Time 23.7 sec (23.78-33.04); Prothrombin Time 9.9 sec (9.27-12.13)
[2018-07-06 04:45] LABS: Magnesium 2.4 mg/dL (1.6-2.6); Phosphorus 2.2 mg/dL (2.5-4.90)
[2018-07-06 04:48] LABS: Potassium 3.6 mmol/L (3.5-5.1)
[2018-07-06 04:58] LABS: Albumin 2.3 g/dL (3.4-5.0); BUN/Creatinine Ratio 22.9; Bilirubin, Total 0.6 mg/dL (0.2-1.0); Calcium 7.3 mg/dL (8.5-10.1); Total Protein 5.7 g/dL (6.4-8.2)
[2018-07-06] MEDS: InsuLIN REG 1unit/0.01ml Soln (100units/ml) SC SCH ×4 (05:44→18:00)
[2018-07-06] MEDS: ACCU-CHEK COMFORT CURVE STRIP VI SCH ×4 (05:45→18:00)
[2018-07-06 06:19] LABS: Band Neutrophils % (manual) 5; Lymphocytes % (manual) 19 (10.0-50.0); Monocytes % (manual) 7 (0-12)
--- NOTE | 2018-07-06 07:00 | NUR ---
REPORT RECEIVED FROM CONSTRUCTION PROJECT ADMINISTRATOR NURSE PATIENT RESTING IN BED AT THIS TIME. RESPIRATIONS EVEN,BUT LABORED. PATIENT RR 28-LOW 30'S. SATURATIONS 93%. BED IN LOW POSITION, CALL LIGHT IN REACH. WILL CONTINUE TO MONITOR. PAGED MD TO INFORM OF PATIENT RESPIRATORY STATUS. AWAITING CALL BACK.
--- NOTE | 2018-07-06 08:45 | NUR ---
ORDERED CXR DUE TO PATIENTS PERSISTENT SOB WITH WHEEZING AND CRACKLES. PAGED MD AWAITING CALL BACK.
--- NOTE | 2018-07-06 09:30 | NUR ---
SPOKE TO DR MONZON PER WILL BE IN SHORTLY TO SEE PATIENT.
[2018-07-06] MEDS: HYDROmorphone HCL 2 MG/ML VL IV PRN ×3 (09:53→20:01)
[2018-07-06] MEDS: PANTOPRAZOLE 40 MG/10 ML VIAL IV SCH ×2 (09:53→22:13)
[2018-07-06] MEDS: SODIUM CHLOR 0.9% PF (SALINE LOCK) 10ML VIAL/SYR IV SCH ×2 (10:00→22:13)
[2018-07-06] MEDS ORDERED: FUROSEMIDE 40 MG/4 ML VIAL ONE (10:54)
--- NOTE | 2018-07-06 10:54 | NUR ---
DR MONZON AT BEDSIDE TO ASSESS PATIENT AND DISCUSS PLAN OF CARE. MD INFORMED OF CXR REPORT AND PATIENTS INCREASED RR HIGH20'MID 30'S AND WHEEZING WITH COARSE LUNG SOUNDS. PER MD ADMINISTER 40MG LASIX IVP X1 DOSE AND START BREATHING TREATMENTS Q6 WHILE AWAKE ORDERED. PER MD DRAW H&H TONIGHT.
[2018-07-06] MEDS ORDERED: FUROSEMIDE 40 MG/4 ML VIAL IV ONE (11:00)
--- NOTE | 2018-07-06 11:07 | NUR ---
PATIENT TAKEN TO CT VIA BED WITH CHARGE NURSE AND WOOD FLOORING SPECIALIST AT BEDSIDE, CONNECTED TO PORTABLE MONITOR AND OXYGEN. VITAL SIGNS STABLE.
[2018-07-06] MEDS ORDERED: IOHEXOL 300 MG/ML 100ML BOTTLE IJ ONE (11:11)
--- NOTE | 2018-07-06 11:45 | NUR ---
PATIENT BACK FROM RADIOLOGY CONNECTED TO BEDSIDE MONITOR. VITAL SIGNS STABLE. CALL LIGHT IN REACH, BED IN LOW POSITION. WILL CONTINUE TO MONITOR.
[2018-07-06] MEDS: IPRATROPIUM BROM 0.5 MG/2.5ML INH SOL NEB SCH ×2 (12:24→18:11)
[2018-07-06] MEDS: ALBUTEROL SULF 2.5 MG/0.5ML(0.5%) NEB SOLN NEB SCH ×2 (12:24→18:11)
[2018-07-06] MEDS ORDERED: TPN PER PHARMACY 0 ML IV SCH (13:30)
--- NOTE | 2018-07-06 17:30 | NUR ---
BM PATIENT ASSISTED UP TO TOILET WITH STANDBY ASSIST. PATIENT HAD BOWEL MOVEMENT. PATIENT TOLERATED WELL.
[2018-07-06] MEDS ORDERED: TPN PER PHARMACY IV NR ×20 (20:00)
[2018-07-06 20:41] LABS: Basophils # (auto) 0.1 uL; Basophils % (auto) 0.8 % (0.0-2.0); Eosinophils # (auto) 0.1 uL; Hematocrit 33.3 % (41.0-53.0); Hemoglobin 10.5 g/dL (13.5-17.5); Lymphocytes # (auto) 1.2 uL; Lymphocytes % (auto) 11.1 % (10.0-50.0); Mean Corpuscular Hemoglobin 28.7 pg (28.0-32.0); Mean Corpuscular Hgb Conc. 31.6 g/dL (32.0-36.0); Mean Corpuscular Volume 90.8 fL (80.0-100.0); Monocytes # (auto) 0.7 uL; Monocytes % (auto) 6.9 % (0.0-12.0); Neutrophils # (auto) 8.6 uL; Neutrophils % (auto) 80.2 % (37.0-80.0); Platelet Count (auto) 305 10^3/uL (140-450); Red Blood Cells 3.67 10^6/uL (4.5-5.90); Red Cell Distribution Width 16.6 % (11.8-14.3); White Blood Cell 10.7 10^3/uL (4.4-10.8)
[2018-07-07] VITALS (30 sets, daily range): BP systolic 113–160; BP diastolic 63–89
[2018-07-07] MEDS: ACCU-CHEK COMFORT CURVE STRIP VI SCH ×5 (00:01→23:38)
[2018-07-07] MEDS: ALBUTEROL SULF 2.5 MG/0.5ML(0.5%) NEB SOLN NEB SCH ×4 (00:21→18:54)
[2018-07-07] MEDS: IPRATROPIUM BROM 0.5 MG/2.5ML INH SOL NEB SCH ×4 (00:21→18:54)
[2018-07-07] MEDS: InsuLIN REG 1unit/0.01ml Soln (100units/ml) SC SCH ×5 (00:22→23:38)
[2018-07-07] MEDS: POTASSIUM CHL 20MEQ/100ML 100 ML IV SCH ×2 (02:05→03:15)
[2018-07-07] MEDS: HYDROmorphone HCL 2 MG/ML VL IV PRN ×5 (02:06→23:26)
--- NOTE | 2018-07-07 02:32 | NUR ---
Pt assisted to bsc , had abm, already flushed, unable to assess characteristics. Medicated twice for abdominal pain with relief. potassium level 3.4, replacement ordered. vss, mild SOB with exertion, needs the O2 at 2l/in.
[2018-07-07 04:33] LABS: Hemoglobin 7.8 g/dL (13.5-17.5)
[2018-07-07 04:34] LABS: Hematocrit 22.8 % (41.0-53.0); Mean Corpuscular Hemoglobin 29.8 pg (28.0-32.0); Mean Corpuscular Hgb Conc. 34.2 g/dL (32.0-36.0); Mean Corpuscular Volume 87.4 fL (80.0-100.0); Platelet Count (auto) 135 10^3/uL (140-450); Red Blood Cells 2.61 10^6/uL (4.5-5.90); Red Cell Distribution Width 14.4 % (11.8-14.3)
[2018-07-07 04:47] LABS: Albumin 2.3 g/dL (3.4-5.0); Calcium 7.3 mg/dL (8.5-10.1); Potassium 3.4 mmol/L (3.5-5.1)
[2018-07-07 04:48] LABS: Magnesium 2.3 mg/dL (1.6-2.6)
[2018-07-07 04:50] LABS: BUN/Creatinine Ratio 19.7; Bilirubin, Total 1.1 mg/dL (0.2-1.0); Total Protein 5.5 g/dL (6.4-8.2)
[2018-07-07 04:55] LABS: Phosphorus 3.5 mg/dL (2.5-4.90)
[2018-07-07 05:16] LABS: Basophils % (manual) 0 (0.0-2.0); Blast Cells 0; Eosinophils % (manual) 0 (0-7); Myelocytes % 0; Promyelocytes % 0; Reactive Lymphocytes 0
[2018-07-07 06:41] LABS: Band Neutrophils % (manual) 5; Lymphocytes % (manual) 23 (10.0-50.0); Metamyelocytes % 1; Monocytes % (manual) 7 (0-12)
--- NOTE | 2018-07-07 07:30 | NUR ---
REPORT REPORT RECEIVED FROM TENA RNDIANA. PT RESTING IN BED WITH VSS. CONTINUE TO MONITOR.
--- NOTE | 2018-07-07 08:00 | NUR ---
ELIMINATION ASSISTED PT TO THE TOILET. ABLE TO PASS A MODERATE AMOUNT OF LOOSELY FORMED GREENISH BROWN BM. SELF PERICARE AND ASSISTED PT BACK TO BED. TOLERATED RELATIVELY WELL BY THE PT.
[2018-07-07 08:09] LABS: Hematocrit 24.3 % (41.0-53.0); Hemoglobin 8.3 g/dL (13.5-17.5); Mean Corpuscular Hemoglobin 29.6 pg (28.0-32.0); Mean Corpuscular Hgb Conc. 34.3 g/dL (32.0-36.0); Mean Corpuscular Volume 86.3 fL (80.0-100.0); Platelet Count (auto) 145 10^3/uL (140-450); Red Blood Cells 2.81 10^6/uL (4.5-5.90); Red Cell Distribution Width 14.2 % (11.8-14.3); White Blood Cell 9.2 10^3/uL (4.4-10.8)
--- NOTE | 2018-07-07 08:12 | NUR ---
ASSESSMENT PT AWAKE AND A/O X4. ABLE TO MOVE SELF IN BED. LUNGS CLEAR THROUGHOUT O2 AT 2 L/M VIA C WITH O2 SAT OF 97%. TELE SR 70, WITH DEPRESSED ST IN LEAD II AND NOTCHED QRS IN LEAD V. DENIES ANY CHEST PAIN OR DISCOMFORT. PALPABLE PULSES TO ALL EXTREMITIES AND NO EDEMA NOTED. ABD SOFT AND TENDER TO TOUCH ON THE RIGHT ABD/FLANK. ACTIVE BOWEL SOUNDS NOTED. LION CATHETER DRAINING CLEAR YELLOW URINE. . PT WITH PICC LINE TO THE RUE, SITE BENIGN, WITH TPN INFUSING AT 55 ML/HR. CONTINUE TO MONITOR. Addendum: 07/07/18 at 1537 by Hien Tavares RN 0815 PAIN PT WITH C/O PAIN TO HIS RIGHT ABD/FLANK, 09/05. MEDICATED WITH DILAUDID 1 MG IV. ADVISED TO ONLY GET UP WITH ASSIST. HE EXPRESSED UNDERSTANDING. CALL JOHNSON WITHIN REACH.
[2018-07-07 08:23] LABS: Blast Cells 0; Eosinophils % (manual) 0 (0-7); Metamyelocytes % 0; Myelocytes % 0; Promyelocytes % 0
--- NOTE | 2018-07-07 08:34 | NUR ---
DR HARDEN PT SEEN AND EXAMINED BY DR HARDEN. HE WANTS TO RESTART THE HEPARIN DRIP. WILL CHECK WITH DR GARCIA TO MAKE SURE HE IS OKAY WITH IT. PAGED DR GARCIA.
[2018-07-07 08:58] LABS: Band Neutrophils % (manual) 2; Basophils % (manual) 1 (0.0-2.0); Lymphocytes % (manual) 13 (10.0-50.0); Monocytes % (manual) 13 (0-12); Reactive Lymphocytes 1
--- NOTE | 2018-07-07 09:00 | NUR ---
PAIN PAIN NOW A 2/10. TOLERABLE FOR THE PT.
--- NOTE | 2018-07-07 09:48 | NUR ---
DR GARCIA AFTER 2 PAGES , SPOKE WITH DR GARCIA AND LET HIM KNOW THAT DR HARDEN WANTS TO RESTART THE HEPARIN PER PROTOCOL. HE STATES IT'S OKAY WITH HIM BUT CHECK WITH DR BERMUDEZ.
--- NOTE | 2018-07-07 09:51 | NUR ---
DR BERMUDEZ PAGED AND SPOKE WITH DR BERMUDEZ. OKAY PER HIM TO RESTART THE PT ON HEPARIN DRIP PER PROTOCOL, BUT MAKE SURE IT IS OKAY WITH DR MARTINEZ.
--- NOTE | 2018-07-07 09:54 | NUR ---
DR MARTINEZ CALLED AND SPOKE WITH DR MARTINEZ AND IT IS OKAY PER HIM TO RESTART HEPARIN DRIP PER PROTOCOL.
[2018-07-07] MEDS ORDERED: POTASSIUM CHL 20 Meq TABLET PO ONE (10:00)
[2018-07-07] MEDS ORDERED: FUROSEMIDE 40 MG/4 ML VIAL IV ONE (10:00)
[2018-07-07] MEDS ORDERED: POTASSIUM CHL 20MEQ/100ML 100 ML IV ONE (10:00)
[2018-07-07] MEDS: SODIUM CHLOR 0.9% PF (SALINE LOCK) 10ML VIAL/SYR IV SCH ×2 (10:36→22:46)
[2018-07-07] MEDS: PANTOPRAZOLE 40 MG/10 ML VIAL IV SCH ×2 (10:37→21:12)
--- NOTE | 2018-07-07 11:47 | NUR ---
Nutrition Follow-up Notes Wt.: 100.0 kg Pt`s sleeping with curtains closed with no family by bedside. 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 pt is currently on clear liq diet (recently advanced) with inadequate PO of 25% x 1 per RN doc. pt also on PN support @ 55 ml/hr providing 1330 kcals and 70 gm proteins 1050 NCP. pt with inadequate PN support as it meets 63-80% kcals and 59-76% proteins Est. Needs: 1650 kcal to 2100 kcal (18-23 kcal/kgBW), 91 gms to 118 gms pro (1.0-1.3 gms/kgBW d/t severe hypoalbuminemia). Will continue to monitor pertinent labs and reassess nutrient need prn Labs: PREALB 7.0 L, GLU 126 H, CA 7.63 , ALB 2.6 L, DELFINO 1.1 H Skin: Jhon scale 17, mod risk, skin intact per RN doc GI: Pt had 1 BM today per fast food server. PES: Increased nutrient needs r/t current/chronic medical condition aeb severe hypoalbuminemia, NPO with PN support. Altered nutrition related lab values r/t current/chronic medical condition aeb hyperglycemia, hyperchloremia, elev.BUN, LFTs, hypocalcemia and severe hypoalbuminemia Will continue to monitor PO intake, PN tolerance, skin status, pertinent labs and weight trend. F/u in 2 to 3 days. Rec.: 1.) If pt continues to be on CLD with inadequate PO continue with PN support, consider gradual increase on calories and protein to meet at least 75% of est nutrient needs. 2.) Advance gradually to oral diet when medically appropriate. 3.) consider ensure clear 1craton bid, along with prostat 1 packet bid. 4) Refer to RD for further nutrition education and weight monitoring upon discharged. 5.) Taper off PN as pt tolerates PO. 6) Continue current plan of care.
[2018-07-07 12:02] LABS: INR 0.92 (0.9-1.15); Prothrombin Time 9.9 sec (9.27-12.13)
[2018-07-07 12:10] LABS: Hepatitis B Surface Antibody Positive
--- NOTE | 2018-07-07 12:20 | NUR ---
CALLED AND SPOKE WITH DEREK IN THE LAB REGARDING HOW LONG FOR PTPTT RESULTS THEY ARE NEEDED BEFORE I CAN START THE HEPARIN. ANTICIPATE RESULTS WITHIN 10 MINUTES.
[2018-07-07 12:38] LABS: Hepatitis A Total Antibody Positive
[2018-07-07] MEDS ORDERED: HEPARIN SODIUM (PORCINE) 5000 UNITS/ML 1ML VIAL IV ONE (12:45)
--- NOTE | 2018-07-07 13:05 | NUR ---
PAIN PT MEDICATED WITH DILAUDID 1 MG IV FOR C/O PAIN TO HIS RIGHT FLANK/ABD, RATES 6/10. ADVISED PT TO STAY IN BED AND ASK FOR ASSISTANCE IF HE NEEDS TO GET UP TO USE THE BATHROOM. HE STATED UNDERSTANDING. CONTINUE TO MONITOR,
[2018-07-07] MEDS: HEPARIN DRIP/D5W 100UNITS/ML 250 ML IV SCH (13:10)
--- NOTE | 2018-07-07 13:15 | NUR ---
HEPARIN DRIP STARTED PT ON HEPARIN DRIP PER PROTOCOL ORDERED BY DR HARDEN, AND OKAYED BY DRS JOSE, AIDAN AND MICHELLE. PTT 21.00, PT 9.90 AND INR OF 0.92. PT WEIGHS 100KG THIS AM. ADMINISTERED BOLUS OF 8000 UNITS OF HEPARIN AND THEN STARTED ON HEPARIN DRIP AT 1800 UNITS/HR PER PROTOCOL. WILL DRAW PTT IN 6 HOURS TO MONITOR AND ADJUST PER PROTOCOL.
[2018-07-07 13:40] LABS: Hepatitis B Core Total AB Negative; Hepatitis B Surface Antigen Negative (Negative); Hepatitis C Antibody Negative (Negative)
--- NOTE | 2018-07-07 16:57 | NUR ---
CHECKING IN ON PT AND HE IS STILL SLEEPING SOUNDLY WITH VSS AND HIS IS AT THE BEDSIDE.
--- NOTE | 2018-07-07 18:48 | NUR ---
PAIN PT WITH C/O RIGHT ABD/FLANK PAIN AND MEDICATED WITH DILAUDID 1 MG IV. AT 1900 KIKI CBC AND PTPTT.
--- NOTE | 2018-07-07 19:30 | NUR ---
REPORT GIVEN TO DIANA MADSEN RN.
[2018-07-07 19:43] LABS: Basophils # (auto) 0 uL; Hemoglobin 8.8 g/dL (13.5-17.5); Lymphocytes # (auto) 1.5 uL; Monocytes # (auto) 1.1 uL; Red Cell Distribution Width 16.2 % (11.8-14.3)
[2018-07-07 19:45] LABS: Basophils % (auto) 0.3 % (0.0-2.0); Eosinophils # (auto) 0.1 uL; Eosinophils % (auto) 1.4 % (0.0-7.0); Lymphocytes % (auto) 15.2 % (10.0-50.0); Mean Corpuscular Hemoglobin 31.7 pg (28.0-32.0); Mean Corpuscular Hgb Conc. 31.5 g/dL (32.0-36.0); Mean Corpuscular Volume 100.7 fL (80.0-100.0); Monocytes % (auto) 11.2 % (0.0-12.0); Neutrophils % (auto) 71.9 % (37.0-80.0); Nucleated Red Blood Cells % 0.3 %; Platelet Count (auto) 155 10^3/uL (140-450); Red Blood Cells 2.78 10^6/uL (4.5-5.90); White Blood Cell 9.7 10^3/uL (4.4-10.8)
[2018-07-07 19:56] LABS: Partial Thromboplastin Time 49.7 sec (23.78-33.04); Prothrombin Time 10.7 sec (9.27-12.13)
[2018-07-07] MEDS ORDERED: TPN PER PHARMACY IV NR ×9 (20:00)
--- NOTE | 2018-07-07 22:06 | NUR ---
REPORT RECEIVED FROM DIANA RENEE TO ASSUME CARE OF PT FROM ICU.
--- NOTE | 2018-07-07 22:40 | NUR ---
JELENA DOWNGRADE RECEIVED FROM ICU VIA BED ACCOMPANIED BY KAYLIN CASILLAS AND JACQUES MESSINA, CONNECTED TO HOT MILL SHEARER AND PORTABLE O2 WITH NO SIGNS OF DISTRESS. RIGHT UPPER ARM PICC LINE PATENT AND INTACT, INFUSING TPN @ 65ML/HR, HEPARIN DRIP @ 1800 UNITS, LION CATHETER DRAINING TO A CLEAR, ORANGE-COLORED URINE OUTPUT, RUQ ABDOMEN DRESSING, DRY AND INTACT. VS: BP 136/76, T 98.3, HR 75, R 16, SPO2 97%. BED IN LOWEST POSITION WITH SIDE RAILS UP, CALL LIGHT WITHIN REACH. ENCOURAGED TO CALL IF HE NEEDS SOMETHING. WILL CONTINUE CARE.
[2018-07-08] VITALS (15 sets, daily range): BP systolic 111–135; BP diastolic 42–91
[2018-07-08] MEDS: HEPARIN DRIP/D5W 100UNITS/ML 250 ML IV SCH ×2 (01:46→13:47)
[2018-07-08 03:40] LABS: INR 0.93 (0.9-1.15); Partial Thromboplastin Time 49.2 sec (23.78-33.04)
[2018-07-08 03:43] LABS: Albumin 2.5 g/dL (3.4-5.0); BUN/Creatinine Ratio 16.4; Magnesium 2.3 mg/dL (1.6-2.6); Phosphorus 3.6 mg/dL (2.5-4.90); Potassium 4.7 mmol/L (3.5-5.1)
[2018-07-08 03:46] LABS: Bilirubin, Total 3.2 mg/dL (0.2-1.0); Total Protein 6.5 g/dL (6.4-8.2)
--- NOTE | 2018-07-08 04:00 | NUR ---
APTT 49.20, HEPARIN DRIP INCREASED BY 200 UNITS, INFUSING @ 20ML/HR NOW= 2000 UNITS.
[2018-07-08 04:08] LABS: Hematocrit 26.6 % (41.0-53.0); Hemoglobin 9.1 g/dL (13.5-17.5); Mean Corpuscular Hemoglobin 29.6 pg (28.0-32.0); Mean Corpuscular Hgb Conc. 34.2 g/dL (32.0-36.0); Mean Corpuscular Volume 86.7 fL (80.0-100.0); Platelet Count (auto) 165 10^3/uL (140-450); Red Blood Cells 3.07 10^6/uL (4.5-5.90); Red Cell Distribution Width 14.5 % (11.8-14.3); White Blood Cell 9.7 10^3/uL (4.4-10.8)
[2018-07-08 04:42] LABS: Basophils % (manual) 0 (0.0-2.0); Blast Cells 0; Myelocytes % 0; Promyelocytes % 0; Reactive Lymphocytes 0
[2018-07-08] MEDS: HYDROmorphone HCL 2 MG/ML VL IV PRN ×4 (05:04→22:20)
[2018-07-08 05:46] LABS: Band Neutrophils % (manual) 2; Eosinophils % (manual) 2 (0-7); Lymphocytes % (manual) 28 (10.0-50.0); Metamyelocytes % 1; Monocytes % (manual) 7 (0-12)
[2018-07-08] MEDS: ACCU-CHEK COMFORT CURVE STRIP VI SCH (06:00)
[2018-07-08] MEDS: InsuLIN REG 1unit/0.01ml Soln (100units/ml) SC SCH (06:00)
[2018-07-08] MEDS: ALBUTEROL SULF 2.5 MG/0.5ML(0.5%) NEB SOLN NEB SCH ×5 (06:25→23:47)
[2018-07-08] MEDS: IPRATROPIUM BROM 0.5 MG/2.5ML INH SOL NEB SCH ×5 (06:25→23:47)
--- NOTE | 2018-07-08 09:04 | NUR ---
DR. HARDEN AT BEDSIDE MD AWARE OF PATIENTS RIGHT LATERAL ABD PAIN. NEW ORDERS IN PLACE.
--- NOTE | 2018-07-08 09:04 | NUR ---
Family updated on pt status Family of ZEESHAN HURST updated on patient's status and condition. All questions and concerns addressed. , Wilda verbalized understanding.
--- NOTE | 2018-07-08 09:32 | NUR ---
DR. FINA BROWN TO VERIFY U/S DATE. ORDER IN PLACE FOR 07/09. AWAITING CALLBACK Addendum: 07/08/18 at 1127 by Dinora Cunningham RN Order verified, per Dr. Woods, u/s ordered for tomorrow.
[2018-07-08] MEDS: PANTOPRAZOLE 40 MG/10 ML VIAL IV SCH ×2 (09:38→22:11)
[2018-07-08] MEDS: SODIUM CHLOR 0.9% PF (SALINE LOCK) 10ML VIAL/SYR IV SCH ×2 (09:38→22:11)
--- NOTE | 2018-07-08 10:04 | NUR ---
PTT/ CBC SENT
[2018-07-08 10:11] LABS: Hematocrit 28.6 % (41.0-53.0); Hemoglobin 9.6 g/dL (13.5-17.5); Mean Corpuscular Hemoglobin 29.4 pg (28.0-32.0); Mean Corpuscular Hgb Conc. 33.7 g/dL (32.0-36.0); Platelet Count (auto) 148 10^3/uL (140-450); Red Blood Cells 3.28 10^6/uL (4.5-5.90); Red Cell Distribution Width 14.6 % (11.8-14.3); White Blood Cell 10.4 10^3/uL (4.4-10.8)
[2018-07-08 10:19] LABS: Basophils % (manual) 0 (0.0-2.0); Blast Cells 0; Metamyelocytes % 0; Myelocytes % 0; Promyelocytes % 0; Reactive Lymphocytes 0
--- NOTE | 2018-07-08 10:54 | NUR ---
ACTIVITY/ I.S. PATIENT HESITANT TO GET OUT OF BED DUE TO RIGHT SIDED PAIN. PATIENT REQUESTING WALK/ ACTIVITY CLOSER TO PAIN MEDICATION ADMINISTRATION. MEANWHILE PATIENT ENCOURAGED TO PERFORM I.S. PATIENT REACHED 2000ML DURING INSPIRATION. PATIENT ABLE TO VERBALIZE CURRENT USE AND PROPER RETURN DEMONSTRATION. AT BEDSIDE.
[2018-07-08 11:12] LABS: INR 0.94 (0.9-1.15); Partial Thromboplastin Time 52.7 sec (23.78-33.04); Prothrombin Time 10.1 sec (9.27-12.13)
--- NOTE | 2018-07-08 11:21 | NUR ---
Heparin protocol ptt 52.7. Per protocol: No bolus, no change. Heparin gtt to remains at 20ml/hr.
[2018-07-08 11:30] LABS: Band Neutrophils % (manual) 3; Eosinophils % (manual) 1 (0-7); Lymphocytes % (manual) 9 (10.0-50.0); Monocytes % (manual) 8 (0-12)
--- NOTE | 2018-07-08 11:50 | NUR ---
MD AT BEDSIDE DR. GARCIA UPDATED ON PATIENTS STATUS. NEW ORDERS IN PLACE.
[2018-07-08] MEDS: traMADol HCL 50 MG TAB PO PRN (13:44)
--- NOTE | 2018-07-08 14:06 | NUR ---
DOWNGRADE TO TELE 274A, THELMA MICHAEL. PATIENT AWARE.
--- NOTE | 2018-07-08 14:16 | NUR ---
Nutrition Patient advanced to full liquid diet. Patient able to feed himself without any difficulty. Patient ate 25%. Pt tolerated well.
--- NOTE | 2018-07-08 14:19 | NUR ---
ELIMINATION PT OOB USING BSC, HAD A SMALL, BROWN BM. TOLERATED ACTIVITY WELL PER PATIENT, TRANSFER SEEMED EASIER THEN PRIOR ATTEMPTS.
--- NOTE | 2018-07-08 14:29 | NUR ---
REPORT REPORT GIVEN TO THELMA MICHAEL. UPDATED ON PLAN OF CARE. QUESTIONS AND CONCERNS ADDRESSED. PT TO BE TAKEN TO 274A.
--- NOTE | 2018-07-08 14:51 | NUR ---
TRANSFER PATIENT ABLE TO TRANSFER FROM BED TO FLOOR BED. PT NOTED TO HAVE FACIAL GRIMACING AND STATING TRAMADOL DID NOT HELP. PER ALEC RENEE SHE WILL PROVIDE PAIN RELIEF ONCE IN ROOM. ALL BELONGINGS WITH PATIENT. PT TAKEN VIA BED TO ROOM WITH THELMA MICHAEL. NO DISTRESS NOTED UPON DEPARTURE.
--- NOTE | 2018-07-08 14:53 | NUR ---
PATIENT ON FLOOR FROM JELE[facility]. PATIENT IS ALERT AND ORIENTED BUT COMPLAINS OF 8/10 PAIN IN RIGHT LOWER ABDOMEN
[2018-07-08 16:54] LABS: INR 1.43 (0.9-1.15)
[2018-07-08 17:19] LABS: Partial Thromboplastin Time > 170.00 sec (23.78-33.04)
--- NOTE | 2018-07-08 17:59 | NUR ---
Huston catheter dc'd Order to discontinue huston catheter. Huston dc'd with clean technique following deflation of balloon. Patient tolerated well with no complaints of pain. Continue care.
[2018-07-08 18:27] LABS: INR 0.94 (0.9-1.15); Prothrombin Time 10.1 sec (9.27-12.13)
--- NOTE | 2018-07-08 19:00 | NUR ---
Respiratory note: PT SEEN FOR SCHEDULED MED NEB TX AT 1900. PT REFUSED HIS TREATMENT AT THIS TIME. PT STATED THAT HE FEELS LIKE HE DOESN'T NEED THEM ANYMORE AND THAT HIS BREATHING HAS BEEN FEELING GREAT ALL DAY. NO SIGNS OF DISTRESS NOTED. HR 85 RR 18 POX 94% ON ROOM AIR. PT AWARE TO CALL FOR RT IF HE CHANGES HIS MIND.
--- NOTE | 2018-07-08 19:15 | NUR ---
endorsed care to NOC RN
[2018-07-08] MEDS ORDERED: TPN PER PHARMACY IV NR ×10 (20:00)
[2018-07-09 00:49] LABS: Hematocrit 29.9 % (41.0-53.0); Hemoglobin 10.1 g/dL (13.5-17.5); Mean Corpuscular Hemoglobin 29.2 pg (28.0-32.0); Mean Corpuscular Hgb Conc. 33.8 g/dL (32.0-36.0); Mean Corpuscular Volume 86.5 fL (80.0-100.0); Platelet Count (auto) 130 10^3/uL (140-450); Red Blood Cells 3.46 10^6/uL (4.5-5.90); Red Cell Distribution Width 14.6 % (11.8-14.3); White Blood Cell 10.9 10^3/uL (4.4-10.8)
[2018-07-09 00:53] LABS: Basophils % (manual) 0 (0.0-2.0); Blast Cells 0; Promyelocytes % 0; Reactive Lymphocytes 0
[2018-07-09] MEDS: HYDROmorphone HCL 2 MG/ML VL IV PRN ×6 (03:00→22:43)
[2018-07-09 03:26] LABS: INR 0.93 (0.9-1.15); Partial Thromboplastin Time 54.2 sec (23.78-33.04)
[2018-07-09 03:27] LABS: Band Neutrophils % (manual) 1; Eosinophils % (manual) 2 (0-7); Lymphocytes % (manual) 24 (10.0-50.0); Metamyelocytes % 2; Monocytes % (manual) 4 (0-12); Myelocytes % 1
[2018-07-09] MEDS: HEPARIN DRIP/D5W 100UNITS/ML 250 ML IV SCH ×2 (04:07→19:57)
[2018-07-09 05:00] VITALS: BP 125/73
[2018-07-09 05:39] LABS: Hemoglobin 10.3 g/dL (13.5-17.5); Mean Corpuscular Hemoglobin 29.5 pg (28.0-32.0); Mean Corpuscular Hgb Conc. 34.3 g/dL (32.0-36.0); Platelet Count (auto) 121 10^3/uL (140-450); Red Blood Cells 3.48 10^6/uL (4.5-5.90); Red Cell Distribution Width 14.7 % (11.8-14.3); White Blood Cell 10.6 10^3/uL (4.4-10.8)
[2018-07-09] MEDS: ALBUTEROL SULF 2.5 MG/0.5ML(0.5%) NEB SOLN NEB SCH ×3 (05:53→19:00)
[2018-07-09] MEDS: IPRATROPIUM BROM 0.5 MG/2.5ML INH SOL NEB SCH ×3 (05:53→19:00)
[2018-07-09 06:17] LABS: Potassium 4.3 mmol/L (3.5-5.1)
[2018-07-09 06:27] LABS: Albumin 2.8 g/dL (3.4-5.0); BUN/Creatinine Ratio 19.8; Bilirubin, Total 3.7 mg/dL (0.2-1.0); Calcium 8.5 mg/dL (8.5-10.1); Total Protein 7.2 g/dL (6.4-8.2)
--- NOTE | 2018-07-09 07:00 | NUR ---
Opening Shift Note Assumed care of patient, awake and alert. No S/S of distress/SOB or pain. Instructed on POC and to call for assist PRN, will continue to monitor for changes Q1hr and PRN.
[2018-07-09 08:00] LABS: INR 0.93 (0.9-1.15); Partial Thromboplastin Time 53.6 sec (23.78-33.04)
[2018-07-09 08:08] LABS: Basophils % (manual) 0 (0.0-2.0); Blast Cells 0; Metamyelocytes % 0; Promyelocytes % 0; Reactive Lymphocytes 0
[2018-07-09 08:24] VITALS: BP 138/78
--- NOTE | 2018-07-09 08:44 | NUR ---
patient in shower
[2018-07-09] MEDS: traMADol HCL 50 MG TAB PO PRN (09:17)
[2018-07-09] MEDS: PANTOPRAZOLE 40 MG/10 ML VIAL IV SCH (11:08)
[2018-07-09] MEDS: SODIUM CHLOR 0.9% PF (SALINE LOCK) 10ML VIAL/SYR IV SCH ×2 (11:08→22:00)
[2018-07-09] MEDS ORDERED: MORPHINE SULFATE 4 MG/ML SYR/VIAL IV PRN (11:30)
[2018-07-09] MEDS ORDERED: PANTOPRAZOLE 40 MG TAB PO ONE (11:45)
[2018-07-09 12:30] LABS: Band Neutrophils % (manual) 2; Eosinophils % (manual) 1 (0-7); Lymphocytes % (manual) 18 (10.0-50.0); Monocytes % (manual) 6 (0-12); Myelocytes % 1
[2018-07-09 12:47] VITALS: BP 131/73
[2018-07-09] MEDS ORDERED: DOCUSATE SOD 100 MG CAP PO ONE (14:15)
[2018-07-09 17:00] VITALS: BP 129/82
--- NOTE | 2018-07-09 19:00 | NUR ---
Respiratory note: PT SEEN FOR SCHEDULED MED NEB TX AT 1900. PT REFUSED HIS TREATMENT AT THIS TIME. PT STATED THAT HIS BREATHING HAS BEEN GOOD AND DOESN'T NEED THEM ANYMORE. HE ALSO STATED THAT HE HAS BEEN WALKING AROUND WITHOUT ANY ISSUES. BREATH SOUNDS WERE CLEAR AND DIMINISHED. HR 90 RR 18 POX 94% ON ROOM AIR. PT AWARE TO CALL FOR RT IF ANY DISTRESS OCCURS.
[2018-07-09 22:00] VITALS: BP 127/73
[2018-07-09 22:33] LABS: Basophils # (auto) 0 uL; Basophils % (auto) 0.4 % (0.0-2.0); Eosinophils # (auto) 0.2 uL; Eosinophils % (auto) 2.1 % (0.0-7.0); Hematocrit 30.3 % (41.0-53.0); Hemoglobin 10.4 g/dL (13.5-17.5); Lymphocytes # (auto) 1.6 uL; Lymphocytes % (auto) 16.4 % (10.0-50.0); Mean Corpuscular Hemoglobin 29.4 pg (28.0-32.0); Mean Corpuscular Hgb Conc. 34.3 g/dL (32.0-36.0); Mean Corpuscular Volume 85.9 fL (80.0-100.0); Monocytes # (auto) 1.2 uL; Monocytes % (auto) 12.1 % (0.0-12.0); Neutrophils # (auto) 6.6 uL; Platelet Count (auto) 82 10^3/uL (140-450); Red Blood Cells 3.53 10^6/uL (4.5-5.90); Red Cell Distribution Width 14.5 % (11.8-14.3); White Blood Cell 9.6 10^3/uL (4.4-10.8)
[2018-07-09] MEDS: PANTOPRAZOLE 40 MG TAB PO SCH (22:43)
[2018-07-09] MEDS: DOCUSATE SOD 100 MG CAP PO SCH (22:44)
[2018-07-10 04:37] VITALS: BP 138/75
[2018-07-10] MEDS: HYDROmorphone HCL 2 MG/ML VL IV PRN ×2 (05:47→09:40)
[2018-07-10 06:22] LABS: Hematocrit 30.5 % (41.0-53.0); Hemoglobin 10.4 g/dL (13.5-17.5); Mean Corpuscular Hemoglobin 29.2 pg (28.0-32.0); Mean Corpuscular Hgb Conc. 34.2 g/dL (32.0-36.0); Mean Corpuscular Volume 85.5 fL (80.0-100.0); Platelet Count (auto) 72 10^3/uL (140-450); Red Blood Cells 3.57 10^6/uL (4.5-5.90); Red Cell Distribution Width 14.9 % (11.8-14.3); White Blood Cell 9.3 10^3/uL (4.4-10.8)
[2018-07-10 06:27] LABS: Albumin 2.8 g/dL (3.4-5.0); BUN/Creatinine Ratio 19.4; Calcium 8.4 mg/dL (8.5-10.1); INR 0.97 (0.9-1.15); Potassium 4.2 mmol/L (3.5-5.1); Prothrombin Time 10.4 sec (9.27-12.13)
[2018-07-10 06:30] LABS: Bilirubin, Total 3.1 mg/dL (0.2-1.0); Total Protein 7.3 g/dL (6.4-8.2)
[2018-07-10 06:48] LABS: Basophils % (manual) 0 (0.0-2.0); Blast Cells 0; Metamyelocytes % 0; Promyelocytes % 0; Reactive Lymphocytes 0
[2018-07-10] MEDS: IPRATROPIUM BROM 0.5 MG/2.5ML INH SOL NEB SCH ×3 (07:49→11:30)
[2018-07-10] MEDS: ALBUTEROL SULF 2.5 MG/0.5ML(0.5%) NEB SOLN NEB SCH ×3 (07:49→11:30)
--- NOTE | 2018-07-10 07:49 | NUR ---
Respiratory note: SCHEDULED MEDNEB TX NOT GIVEN, PT REFUSED AT THIS TIME. HR 94, RR 16, POX 95% ON ROOM AIR. BREATH SOUNDS CLEAR DIMINISHED THROUGHOUT. NO S/S OF RESPIRATORY DISTRESS.
[2018-07-10 08:44] LABS: Band Neutrophils % (manual) 1; Eosinophils % (manual) 4 (0-7); Lymphocytes % (manual) 18 (10.0-50.0); Monocytes % (manual) 5 (0-12); Myelocytes % 2
[2018-07-10 09:00] VITALS: BP 131/75
[2018-07-10] MEDS: PANTOPRAZOLE 40 MG TAB PO SCH (09:43)
[2018-07-10] MEDS: SODIUM CHLOR 0.9% PF (SALINE LOCK) 10ML VIAL/SYR IV SCH (09:43)
[2018-07-10] MEDS: DOCUSATE SOD 100 MG CAP PO SCH (09:43)
[2018-07-10] MEDS ORDERED: APIXABAN 5 MG TAB PO SCH (10:00)
--- NOTE | 2018-07-10 11:30 | NUR ---
Respiratory note: SCHEDULED MEDNEB TX NOT GIVEN, PT REFUSING AT THIS TIME. NO S/S OF RESPIRATORY DISTRESS. WILL ENDORSE PT CARE TO NOC RT.
[2018-07-10 11:51] LABS: Hematocrit 32.7 % (41.0-53.0); Hemoglobin 10.8 g/dL (13.5-17.5); Mean Corpuscular Hemoglobin 28.4 pg (28.0-32.0); Mean Corpuscular Hgb Conc. 33.2 g/dL (32.0-36.0); Mean Corpuscular Volume 85.6 fL (80.0-100.0); Platelet Count (auto) 78 10^3/uL (140-450); Red Blood Cells 3.82 10^6/uL (4.5-5.90); Red Cell Distribution Width 14.6 % (11.8-14.3); White Blood Cell 8.9 10^3/uL (4.4-10.8)
[2018-07-10 11:57] LABS: Basophils % (manual) 0 (0.0-2.0); Blast Cells 0; Metamyelocytes % 0; Promyelocytes % 0; Reactive Lymphocytes 0
[2018-07-10 12:50] LABS: Band Neutrophils % (manual) 1; Eosinophils % (manual) 1 (0-7); Lymphocytes % (manual) 13 (10.0-50.0); Monocytes % (manual) 15 (0-12); Myelocytes % 2
[2018-07-10 13:00] VITALS: BP 131/71
[2018-07-10] MEDS ORDERED: HYDROmorphone HCL 2 MG/ML VL IV PRN (13:45)
[2018-07-10 15:21] VITALS: BP 130/75
--- NOTE | 2018-07-10 16:03 | NUR ---
Discharge instructions given as ordered. Encourage to follow up with PMD as instructed. All questions and concerns addressed. Patient verbalized understanding. Medication reconciliation form completed and copy given to patient. Home medications held in Pharmacy returned to patient, and needed vaccines given. IV removed with catheter intact, pressure dressing applied,TELE UNIT turned to ICU. Patient taken to vehicle via wheelchair with all personal belongings, accompanied by staff and family member. No distress noted at time of departure.
== END 2018-07-10 14:02 | disposition home or self-care (01) | DRG 442 ==
LOC: ER 08:04 → TELE 13:39 → ICU WEST 18:47 → DOU IN ICU 07-07 22:15 → TELE-WESTW 07-08 14:53
PROVIDERS: ADMIT Internal Medicine; ATTEND Internal Medicine
PROC: 02HV33Z Insertion of Infusion Device into Superior Vena Cava, Percutaneous Approach (ICD-10-PCS; 2018-07-03)
PROC: 3E04317 Introduction of Other Thrombolytic into Central Vein, Percutaneous Approach (ICD-10-PCS; 2018-07-03)
PROC: B51T1ZZ Fluoroscopy of Portal and Splanchnic Veins using Low Osmolar Contrast (ICD-10-PCS; 2018-07-03)
PROC: 30233N1 Transfusion of Nonautologous Red Blood Cells into Peripheral Vein, Percutaneous Approach (ICD-10-PCS; 2018-07-04)
PROC: 0DJ08ZZ Inspection of Upper Intestinal Tract, Via Natural or Artificial Opening Endoscopic (ICD-10-PCS; principal; 2018-07-04 13:00)
DX: I81 Portal vein thrombosis (principal); K92.0 Hematemesis; D62 Acute posthemorrhagic anemia; N17.9 Acute kidney failure, unspecified; E87.70 Fluid overload, unspecified; K76.89 Other specified diseases of liver; E66.9 Obesity, unspecified; D69.6 Thrombocytopenia, unspecified; K29.80 Duodenitis without bleeding; K44.9 Diaphragmatic hernia without obstruction or gangrene; K76.0 Fatty (change of) liver, not elsewhere classified; Z79.899 Other long term (current) drug therapy; Z83.3 Family history of diabetes mellitus; Z84.1 Family history of disorders of kidney and ureter; Z68.30 Body mass index [BMI] 30.0-30.9, adult
CPT/HCPCS: 36415; 36569; 51702; 71045; 74176; 74177; 76000; 76705; 76942; 77002; 80053; 81001; 81241; 82040; 82150; 82962; 83036; 83605; 83615; 83690; 83735; 83880; 84100; 84132; 84311; 84478; 85007; 85014; 85018; 85025; 85027; 85302; 85305; 85306; 85379; 85384; 85610; 85613; 85652; 85670; 85705; 85730; 85732; 86141; 86147; 86704; 86706; 86708; 86803; 86850; 86900; 86901; 86920; 87040; 87081; 87340; 94640; 96365; 96375; 99152; A6257; C1757; C9113; G0378; J1815; J1885; J2250; J2405; J2543; J3480; J7060

== ENCOUNTER 2020-12-16 05:09 | Inpatient (IN) | payer BC, OTHER ==
[~2020-12-16] VITALS: Ht 167.6 cm; Wt 79.4 kg
[~2020-12-16 05:09] MED LIST: PANT40TA2 PO
[2020-12-16] MEDS ORDERED: ACETAMINOPHEN/CODEINE#3 (300/30mg) TAB PO ONE (05:30)
[2020-12-16] MEDS ORDERED: ONDANSETRON ODT 4 MG TAB PO ONE (05:30)
[2020-12-16] MEDS ORDERED: CLINDAMYCIN 900MG IV 50 ML IV ONE (07:45)
[2020-12-16] MEDS ORDERED: cefTRIAXone 1GM/50ML D5W 50 ML IV ONE (07:45)
[2020-12-16] MEDS ORDERED: KETOROLAC TROMETH 30 MG/ML 1ML VIAL IV ONE (07:45)
[2020-12-16 08:16] LABS: Basophils # (auto) 0.1 10 ^3/uL (0-0.2); Basophils % (auto) 0.7 % (0.0-2.0); Eosinophils # (auto) 0 10 ^3/uL (0-0.8); Eosinophils % (auto) 0.1 % (0.0-7.0); Hematocrit 47.1 % (41.0-53.0); Hemoglobin 15.8 g/dL (13.5-17.5); Lymphocytes # (auto) 2.1 10 ^3/uL (0.4-5.4); Lymphocytes % (auto) 21.2 % (10.0-50.0); Mean Corpuscular Hemoglobin 29.1 pg (28.0-32.0); Mean Corpuscular Hgb Conc. 33.6 g/dL (32.0-36.0); Mean Corpuscular Volume 86.5 fL (80.0-100.0); Monocytes # (auto) 0.9 10 ^3/uL (0-1.3); Monocytes % (auto) 9.5 % (0.0-12.0); Neutrophils # (auto) 6.7 10 ^3/uL (1.6-8.6); Neutrophils % (auto) 68.5 % (37.0-80.0); Red Blood Cells 5.44 10^6/uL (4.5-5.90); Red Cell Distribution Width 14.6 % (11.8-14.3); White Blood Cell 9.8 10^3/uL (4.4-10.8)
[2020-12-16 08:31] LABS: BUN/Creatinine Ratio 14.9; Calcium 8.9 mg/dL (8.5-10.1); Potassium 4.2 mmol/L (3.5-5.1)
[2020-12-16] MEDS ORDERED: MORPHINE SULFATE INJECTION 2 MG/ML SYRG IV PRN (10:30)
[2020-12-16] MEDS ORDERED: NITROGLYCERIN 0.4 MG SL TAB SL PRN (10:30)
[2020-12-16] MEDS ORDERED: ACETAMINOPHEN 500 MG TAB PO PRN (11:00)
[2020-12-16] MEDS ORDERED: LACTULOSE 20Gm/30ML SOLN PO PRN (11:00)
[2020-12-16] MEDS ORDERED: levoFLOXacin 500MG 100 ML IV ONE (11:00)
[2020-12-16] MEDS ORDERED: PROMETHAZINE HCL 25 MG/ML 1ML IV PRN (11:00)
[2020-12-16] MEDS ORDERED: TEMAZEPAM 15 MG CAP PO PRN (11:00)
[2020-12-16] MEDS ORDERED: VANCOMYCIN PER PHARMACY 0 MG IV SCH (11:00)
[2020-12-16] MEDS ORDERED: VANCOMYCIN 1GM/250ML 250 ML IV ONE (12:00)
[2020-12-16] MEDS: SODIUM CHLORIDE 0.9% 1,000 ML IV SCH (12:24)
[2020-12-16] MEDS: MORPHINE SULFATE INJECTION 2 MG/ML SYRG IV PRN ×2 (12:55→17:30)
[2020-12-16] MEDS: traMADol HCL 50 MG TAB PO PRN (14:59)
[2020-12-17] MEDS ORDERED: VANCOMYCIN 1GM/250ML 250 ML IV SCH (01:00)
[2020-12-17] MEDS: MORPHINE SULFATE INJECTION 2 MG/ML SYRG IV PRN ×2 (04:01→08:35)
[2020-12-17] MEDS: SODIUM CHLORIDE 0.9% 1,000 ML IV SCH ×2 (07:00→08:08)
[2020-12-17 07:50] LABS: Basophils # (auto) 0 10 ^3/uL (0-0.2); Basophils % (auto) 0.3 % (0.0-2.0); Eosinophils # (auto) 0.1 10 ^3/uL (0-0.8); Eosinophils % (auto) 1.2 % (0.0-7.0); Hematocrit 41.6 % (41.0-53.0); Hemoglobin 14.4 g/dL (13.5-17.5); Lymphocytes % (auto) 23.4 % (10.0-50.0); Mean Corpuscular Hemoglobin 29.9 pg (28.0-32.0); Mean Corpuscular Hgb Conc. 34.6 g/dL (32.0-36.0); Mean Corpuscular Volume 86.6 fL (80.0-100.0); Monocytes # (auto) 1.1 10 ^3/uL (0-1.3); Monocytes % (auto) 12.7 % (0.0-12.0); Neutrophils # (auto) 5.4 10 ^3/uL (1.6-8.6); Neutrophils % (auto) 62.4 % (37.0-80.0); Red Cell Distribution Width 14.6 % (11.8-14.3); White Blood Cell 8.6 10^3/uL (4.4-10.8)
[2020-12-17 08:14] LABS: Albumin 3.1 g/dL (3.4-5.0); Calcium 8.4 mg/dL (8.5-10.1); Potassium 4.4 mmol/L (3.5-5.1)
[2020-12-17 08:17] LABS: BUN/Creatinine Ratio 14.8
[2020-12-17 08:19] LABS: Total Protein 7.2 g/dL (6.4-8.2)
[2020-12-17] MEDS ORDERED: levoFLOXacin 500MG 100 ML IV SCH (10:00)
[2020-12-17] MEDS ORDERED: APIX2.5T PO (10:09)
[2020-12-17 10:10] VITALS: BP 127/77
[2020-12-17] MEDS: traMADol HCL 50 MG TAB PO PRN (10:18)
[2020-12-19 09:17] LABS: Hepatitis B Surface Antibody Positive
[2020-12-19 09:53] LABS: Hepatitis A Total Antibody Positive
[2020-12-19 12:59] LABS: Hepatitis B Core Total AB Negative
[2020-12-19 13:00] LABS: Hepatitis B Surface Antigen Negative (Negative); Hepatitis C Antibody Negative (Negative)
== END 2020-12-17 13:12 | disposition left against medical advice (07) | DRG 563 ==
LOC: ER 05:09 → TELE 10:23
PROVIDERS: ADMIT Internal Medicine; ATTEND Internal Medicine
DX: S52.022A Displaced fracture of olecranon process without intraarticular extension of left ulna, initial encounter for closed fracture (principal); L03.114 Cellulitis of left upper limb; E44.1 Mild protein-calorie malnutrition; S53.195A Other dislocation of left ulnohumeral joint, initial encounter; E88.09 Other disorders of plasma-protein metabolism, not elsewhere classified; W18.39XA Other fall on same level, initial encounter; E66.9 Obesity, unspecified; Z53.29 Procedure and treatment not carried out because of patient's decision for other reasons; Z20.822 Contact with and (suspected) exposure to COVID-19; Z79.01 Long term (current) use of anticoagulants; Y93.89 Activity, other specified; Y92.89 Other specified places as the place of occurrence of the external cause; Y99.8 Other external cause status
CPT/HCPCS: 36415; 73080; 73200; 80048; 80053; 83605; 85025; 86704; 86706; 86708; 86803; 87040; 87340; 96365; 96367; 96375; G0378; J0696; J1885; J1956; J3490; Q0162